=== PATIENT | female | born 1970 | race Native Hawaiian/Other Pacific Islander ===

== ENCOUNTER 2018-03-01 16:12 | Inpatient (IN) | payer OTHER ==
[2018-03-01] MEDS ORDERED: Lidocaine 5% Patch TD STA (16:33)
[2018-03-01] MEDS ORDERED: Lidocaine 5% Patch TD ONE (17:12)
[2018-03-01] MEDS ORDERED: Oxycodone/Acetaminophen 5/325 mg Tab PO STA (18:33)
--- NOTE | 2018-03-01 18:52 | CT ---
PROCEDURE: CT Lumbar Spine without contrast HISTORY: R sided lower back pain radiating to R leg COMPARISON: None. TECHNIQUE: Axial computed tomography images were obtained of the lumbar spine without the use of intravenous contrast. Coronal and sagittal reformatted images were created and reviewed. Radiation dose: Total exam DLP = 917.26 mGy-cm. This CT exam was performed using one or more of the following dose reduction techniques: Automated exposure control, adjustment of the mA and/or kV according to patient size, and/or use of iterative reconstruction technique. FINDINGS: VERTEBRAE: The at current study reveals no acute compression fractures no retropulsed fragments. Vertebral bodies exhibit normal stature. There is straightening of the normal lumbar lordosis with very minimal posterior is subluxation L5 over S1 however vertebral bodies otherwise exhibit normal alignment. Facets normally aligned. DISCS/SPINAL CANAL/NEURAL FORAMINA: L1-2: Mild posterior disc space narrowing. . No disc herniation or significant disc bulge. L2-3: Minor posterior disc space narrowing. No disc herniation or significant disc bulge. Central canal and exit foramina adequate. . L3-4: . Mild asymmetric disc bulging is present bilaterally which results in mild flattening of the anterolateral borders of the thecal sac more so on the left side than the right. Disc bulging extends into the proximal inferior margins of both exit foramina. The central canal measured at midline is adequate. Facets are hypertrophic. Proximal exit foramina appear marginal to adequate. L4-5: Minor anterior disc space narrowing. Asymmetric disc bulge larger on the left than right with mild compressive effects on the ventral surface of thecal sac more so on the left side. Lateral recess narrowed bilaterally left greater than right. Central canal measured at midline appears adequate. There is mild left-sided facet arthropathy more so than right. . Proximal exit foramina are marginal to minimally narrowed. L5-S1: Minor disc space narrowing. There is broad-based though asymmetric disc bulge at the L5-S1 level which extends into the proximal inferior margins of both exit foramina more so on the right side. . . . There is mild compressive effects on the ventral surface of the thecal sac and descending S1 nerve roots more so on the right side with bilateral lateral recess stenosis. Central canal is also mildly narrowed. PARASPINAL SOFT TISSUES: Unremarkable. OTHER FINDINGS: None. IMPRESSION: No acute fractures. Mild degenerative spondylosis with asymmetric disc bulging changes noted at the L5-S1, L4-L5 at the L3-L4 levels as described.
--- NOTE | 2018-03-01 19:47 | ED PDOC ---
HPI: Back Time Seen by Provider: 03/01/18 16:24 Chief Complaint (Nursing): Back Pain Chief Complaint (Provider): Back Pain History Per: Patient History/Exam Limitations: no limitations Onset/Duration Of Symptoms: Intermittent Episodes, Worse Since Current Symptoms Are (Timing): Still Present Quality Of Discomfort: "Pain" Additional Complaint(s): 47 year old female presents to the ED for an evaluation of intermittent back pain onset for 6 months. Patient was treated with Diclofenac which provided relief. As she was getting off the bus today, the pain became worse. Denies trauma, fever, incontinence, nausea, vomiting, or hematuria. PMD: No Family Provided Past Medical History Reviewed: Historical Data, Nursing Documentation, Vital Signs Vital Signs: Last Vital Signs Temp 97.7 F 03/01/18 17:00 Pulse 57 L 03/01/18 17:00 Resp 18 03/01/18 17:00 BP 149/91 H 03/01/18 17:00 Pulse Ox 98 03/01/18 17:00 - Medical History PMH: No Chronic Diseases - Surgical History Surgical History: No Surg Hx - Family History Family History: States: Unknown Family Hx - Allergies Allergies/Adverse Reactions: Allergies Allergy/AdvReac Type Severity Reaction Status Date / Time No Known Allergies Allergy Verified 03/01/18 16:19 Review of Systems ROS Statement: Except As Marked, All Systems Reviewed And Found Negative Constitutional: Negative for: Fever, Other (trauma) Gastrointestinal: Negative for: Nausea, Vomiting Genitourinary Female: Negative for: Incontinence, Hematuria Musculoskeletal: Positive for: Back Pain Physical Exam - Reviewed Nursing Documentation Reviewed: Yes Vital Signs Reviewed: Yes - Physical Exam Appears: Positive for: Non-toxic, In Acute Distress ( moderate ) Head Exam: Positive for: ATRAUMATIC, NORMAL INSPECTION, NORMOCEPHALIC Skin: Positive for: Normal Color, Warm, Dry. Negative for: Rash Eye Exam: Positive for: Normal appearance Cardiovascular/Chest: Positive for: Regular Rate, Rhythm. Negative for: JVD Respiratory: Positive for: Normal Breath Sounds. Negative for: Decreased Breath Sounds, Accessory Muscle Use, Respiratory Distress Gastrointestinal/Abdominal: Positive for: Normal Exam, Bowel Sounds, Soft. Negative for: Tenderness, Guarding, Rebound Back: Positive for: Normal Inspection (straight leg raise, right leg 30 degrees raise), Other (moderate tenderness to the right buttock) Neurologic/Psych: Positive for: Alert, Oriented (x3). Negative for: Aphasia, Facial Droop - Laboratory Results Result Diagrams: 03/01/18 21:36 03/01/18 21:36 - ECG O2 Sat by Pulse Oximetry: 98 (RA) Pulse Ox Interpretation: Normal Medical Decision Making Medical Decision Making: Time: 1632 Initial Impression: back pain Initial Plan: --Lumbar Spine w/o Contrast CT --ED Urine --Lidoderm --Percocet 5/325mg 2 tab --Toradol 30mg --Valium 10mg --Zofran 4mg --Urinalysis --Reevaluation 1829 On re-evaluation, pt. in moderate painful distress. States pain has improved only slight. Percocet 2 tabs PO, zofran 4mg ODT ordered. 1849 CT LS spine w/o contrast: No acute fractures. Mild degenerative spondylosis with asymmetric disc bulging changes noted at the L5-S1, L4-L5 at the L3-L4 levels as described. 2100 On re-evaluation, pt. reports initially percocet provided some pain relief but when she attempted to stand up pain returned is now 10/10. Denies fall, trauma. Labs, morphine 4mg IV ordered. Case d/w Dr. Stack who agrees with plan to keep pt. for observation due to intractable pain. Case d/w Dr. Hall and arrangements made for 23 hour observation. Scribe Attestation: Documented by Belia Soliman, acting as a scribe for Itz Cool PA-C. Provider Scribe Attestation: All medical record entries made by the Scribe were at my direction and personally dictated by me. I have reviewed the chart and agree that the record accurately reflects my personal performance of the history, physical exam, medical decision making, and the department course for this patient. I have also personally directed, reviewed, and agree with the discharge instructions and disposition. Disposition - Clinical Impression Clinical Impression: Intractable low back pain - Patient ED Disposition Is Patient to be Admitted: Yes - Disposition Disposition Time: 21:15 Condition: FAIR
[2018-03-01] MEDS ORDERED: Morphine 4 MG/ML VIAL IVP STA (21:11)
[2018-03-01] MEDS ORDERED: Morphine 4 MG/ML VIAL ONE (21:15)
[2018-03-01 21:40] LABS: BASO # 0.1 K/uL (0.0-0.2); BASO % 1.1 % (0.0-2.0); EOS # 0.2 K/uL (0.0-0.7); EOS % 1.9 % (0.0-4.0); HEMOGLOBIN 13.4 g/dL (12.0-16.0); LYMPH # 4.5 K/uL (1.0-4.3); LYMPH % 34.5 % (20.0-40.0); MEAN CELL VOLUME 95.5 fl (81.0-99.0); MEAN CORPUSCULAR HEMOGLOBIN 32.4 pg (27.0-31.0); MEAN CORPUSCULAR HGB CONC 33.9 g/dL (33.0-37.0); MEAN PLATELET VOLUME 8.9 fl (7.2-11.7); MONO # 1.2 K/uL (0.0-0.8); NEUT % 53.5 % (50.0-75.0); RBC 4.14 Mil/uL (3.80-5.20); RED CELL DISTRIBUTION WIDTH 13.6 % (11.5-14.5); WHITE BLOOD COUNT 13.1 K/uL (4.8-10.8)
[2018-03-01 21:50] LABS: GFR AFRICAN-AMERICAN > 60; GFR NON-AFRICAN AMERICAN > 60
[2018-03-01 21:56] LABS: ALB/GLOB RATIO 1.3 (1.0-2.1); ALBUMIN 4.5 g/dL (3.5-5.0); ALT/SGPT 22 U/L (9-52); AST/SGOT 33 U/L (14-36); BLOOD UREA NITROGEN 18 mg/dl (7-17)
[2018-03-01] MEDS ORDERED: Sodium Chloride 0.9% 1,000 ML IV STA (21:57)
[2018-03-02] MEDS ORDERED: Oxycodone/Acetaminophen 5/325 mg Tab PO PRN (00:08)
[2018-03-02 06:42] LABS: HEMOGLOBIN 12.8 g/dL (12.0-16.0); MEAN CELL VOLUME 95.5 fl (81.0-99.0); MEAN CORPUSCULAR HEMOGLOBIN 31.7 pg (27.0-31.0); MEAN CORPUSCULAR HGB CONC 33.2 g/dL (33.0-37.0); RBC 4.04 Mil/uL (3.80-5.20); RED CELL DISTRIBUTION WIDTH 13.4 % (11.5-14.5); WHITE BLOOD COUNT 11.2 K/uL (4.8-10.8)
[2018-03-02 07:11] LABS: PARTIAL THROMBOPLASTIN TIME 26.9 Seconds (25.6-37.1); PROTHROMBIN TIME 10.9 Seconds (9.8-13.1)
[2018-03-02 07:28] LABS: T3 0.893 nmol/L (1.49-2.60)
[2018-03-02 07:40] LABS: ALB/GLOB RATIO 1.2 (1.0-2.1); ALT/SGPT 23 U/L (9-52); AST/SGOT 18 U/L (14-36); BLOOD UREA NITROGEN 15 mg/dl (7-17); CALCIUM 8.6 mg/dL (8.4-10.2); GFR AFRICAN-AMERICAN > 60; GFR NON-AFRICAN AMERICAN > 60; HDL CHOLESTEROL 56 MG/DL (30-70)
[2018-03-02 07:46] LABS: LDL CHOLESTEROL 140 mg/dL (0-129)
--- NOTE | 2018-03-02 11:23 | CP.PCM.HP ---
History of Present Illness - History of Present Illness History of Present Illness: CC Intractable back pain. 47 y/o F, no chronic PMHx, came to [facility] on 03/01/18 to be evaluated and Tx for intractable low back pain that began 6 months ago increased on DOA after she get out from the bus and start waking, pain was described as sharp, ache, intermittent, severe intensity 9:10, radiated to R side of buttock down to thigh to big toe, no associated symptoms, Pt with no relief. Worsening symptoms: Found with L5 nerve root compression due to moderate foraminal stenosis from disc herniation on MRI, also abnormal U/A. Aggravated factor: Movements/exercise. Pt denied: Fever, chills, n/v/d, CP, SOB, dizziness, syncope, trauma, urinary symptoms, sick contact, recent travel out of [facility]. Present on Admission - Present on Admission Any Indicators Present on Admission: No Review of Systems - Constitutional Constitutional: Other (negative) - EENT Eyes: Other (negative) Ears: Other (negative) Nose/Mouth/Throat: Other (negative) - Cardiovascular Cardiovascular: Other (negative) - Respiratory Respiratory: Other (negative) - Gastrointestinal Gastrointestinal: Other (negative) - Genitourinary Genitourinary: Other (negative) - Musculoskeletal Musculoskeletal: Back Pain, Radiating Pain into Limb - Integumentary Integumentary: Other (negative) - Neurological Neurological: Radicular Pain - Psychiatric Psychiatric: Other (negative) - Endocrine Endocrine: Other (negative) - Hematologic/Lymphatic Hematologic: Other (negative) Past Patient History - Past Medical History & Family History Pertinent Family History: Unknown - Past Social History Smoking Status: Former Smoker Alcohol: None Drugs: Denies Home Situation {Lives}: Alone - CARDIAC Hx Cardiac Disorders: No - PULMONARY Hx Respiratory Disorders: No - NEUROLOGICAL Hx Neurological Disorder: No - HEENT Hx HEENT Problems: No - RENAL Hx Chronic Kidney Disease: No - ENDOCRINE/METABOLIC Hx Endocrine Disorders: No - HEMATOLOGICAL/ONCOLOGICAL Hx Blood Disorders: No - INTEGUMENTARY Hx Dermatological Problems: No - MUSCULOSKELETAL/RHEUMATOLOGICAL Hx Musculoskeletal Disorders: Yes Hx Back Pain: Yes Hx Falls: No - GASTROINTESTINAL Hx Gastrointestinal Disorders: No - GENITOURINARY/GYNECOLOGICAL Hx Genitourinary Disorders: No - PSYCHIATRIC Hx Psychophysiologic Disorder: No Hx Substance Use: No - SURGICAL HISTORY Hx Surgeries: No - ANESTHESIA Hx Anesthesia: No Meds Allergies/Adverse Reactions: Allergies Allergy/AdvReac Type Severity Reaction Status Date / Time No Known Allergies Allergy Verified 03/01/18 16:19 Physical Exam - Constitutional Appears: No Acute Distress - Head Exam Head Exam: NORMAL INSPECTION - Eye Exam Eye Exam: PERRL - ENT Exam ENT Exam: Normal Exam - Neck Exam Neck exam: Positive for: Normal Inspection - Respiratory Exam Respiratory Exam: Clear to Auscultation Bilateral - Cardiovascular Exam Cardiovascular Exam: REGULAR RHYTHM - Extremities Exam Extremities exam: Positive for: normal inspection Additional comments: Straight R leg raising at 45 degree. - Back Exam Back exam: NORMAL INSPECTION, tenderness (Moderate to R buttock) - Neurological Exam Neurological exam: Alert, Oriented x3 - Psychiatric Exam Psychiatric exam: Normal Mood - Skin Skin Exam: Warm Results - Vital Signs Recent Vital Signs: Last Vital Signs Temp 98.1 F 03/02/18 09:00 Pulse 58 L 03/02/18 09:00 Resp 19 03/02/18 09:00 BP 143/87 03/02/18 09:00 Pulse Ox 98 03/02/18 09:00 kevin Gutierrez - Labs Result Diagrams: 03/03/18 05:21 03/03/18 05:21 Labs: Laboratory Results - last 24 hr 03/01/18 03/01/18 03/02/18 21:36 21:36 05:35 WBC 13.1 H 11.2 H RBC 4.14 4.04 Hgb 13.4 12.8 Hct 39.6 38.6 MCV 95.5 95.5 MCH 32.4 H 31.7 H MCHC 33.9 33.2 RDW 13.6 13.4 Plt Count 312 282 MPV 8.9 Neut % (Auto) 53.5 Lymph % (Auto) 34.5 [place] % (Auto) 9.0 Eos % (Auto) 1.9 Baso % (Auto) 1.1 Neut # (Auto) 7.0 Lymph # (Auto) 4.5 H [place] # (Auto) 1.2 H Eos # (Auto) 0.2 Baso # (Auto) 0.1 PT INR APTT Sodium 136 Potassium 4.7 Chloride 104 Carbon Dioxide 19 L Anion Gap 18 BUN 18 H Creatinine 0.6 L Est GFR ( Amer) > 60 Est GFR (Non-Af Amer) > 60 Random Glucose 99 Calcium 9.0 Total Bilirubin 1.1 AST 33 ALT 22 Alkaline Phosphatase 37 L Total Protein 8.0 Albumin 4.5 Globulin 3.5 Albumin/Globulin Ratio 1.3 Triglycerides Cholesterol LDL Cholesterol Direct HDL Cholesterol Total T3 TSH 3rd Generation 03/02/18 03/02/18 05:35 05:35 WBC RBC Hgb Hct MCV MCH MCHC RDW Plt Count MPV Neut % (Auto) Lymph % (Auto) [place] % (Auto) Eos % (Auto) Baso % (Auto) Neut # (Auto) Lymph # (Auto) [place] # (Auto) Eos # (Auto) Baso # (Auto) PT 10.9 INR 1.0 APTT 26.9 Sodium 136 Potassium 4.3 Chloride 105 Carbon Dioxide 21 L Anion Gap 14 BUN 15 Creatinine 0.6 L Est GFR ( Amer) > 60 Est GFR (Non-Af Amer) > 60 Random Glucose 105 Calcium 8.6 Total Bilirubin 0.7 AST 18 ALT 23 Alkaline Phosphatase 36 L Total Protein 7.3 Albumin 4.0 Globulin 3.3 Albumin/Globulin Ratio 1.2 Triglycerides 63 Cholesterol 229 H LDL Cholesterol Direct 140 H HDL Cholesterol 56 Total T3 0.893 L TSH 3rd Generation 0.85 reviewed J.P. - Impressions Impression: Lumbar Spine MRI and CT reviewed J.P. Assessment & Plan (1) Intractable low back pain Status: Acute Priority: High (2) Radiculopathy, lumbar region Status: Acute Priority: High - Assessment and Plan (Free Text) Plan: Continue Flexeril, Morphine, Motrin and rest of Tx, PT, OT, Neurology consult, Pain management consult. - Date & Time Date: 03/02/18 Time: 10:20
--- NOTE | 2018-03-02 11:57 | CP.PCM.CON ---
History of Present Illness - History of Present Illness History of Present Illness: Patient complaining of low back pain starting on the right buttock radiating down from back of thigh to her big toe anteriorly. She had similar expeerience since last year but of mild episodes and of lesser duration. Usually relieved by rest and some NSAID given by her primary physician. This time, pain progressively worsened overnight prior to admission. It started after getting off bus and aggravated by walking. Denies any trauma nor lifting heavy objects. Denies any urine nor bowel incontinence. Positive straight leg raising on right side at 45 degrees. Motor: LLE = 5/5; RLE = 4/5 due to low back pain. Intact sensory on both lower extremity. No elicit tenderness of her back nor buttocks. Past Patient History - Past Social History Smoking Status: Former Smoker - CARDIAC Hx Cardiac Disorders: No - MUSCULOSKELETAL/RHEUMATOLOGICAL Hx Falls: No - PSYCHIATRIC Hx Substance Use: No - SURGICAL HISTORY Hx Surgeries: No - ANESTHESIA Hx Anesthesia: No Meds Allergies/Adverse Reactions: Allergies Allergy/AdvReac Type Severity Reaction Status Date / Time No Known Allergies Allergy Verified 03/01/18 16:19 - Medications Medications: Current Medications Cyclobenzaprine HCl (Flexeril) 5 mg PO TID PRN PRN Reason: Muscle spasm Morphine Sulfate (Morphine) 4 mg IVP Q4 PRN PRN Reason: Pain, severe (8-10) Last Admin: 03/02/18 08:15 Dose: 4 mg Ondansetron HCl (Zofran Inj) 4 mg IVP Q4 PRN PRN Reason: Nausea/Vomiting Oxycodone/Acetaminophen (Percocet 5/325 Mg Tab) 1 tab PO Q4 PRN PRN Reason: Pain, moderate (4-7) Stop: 03/05/18 00:09 Results - Vital Signs Recent Vital Signs: Last Vital Signs Temp 98.1 F 03/02/18 09:00 Pulse 58 L 03/02/18 09:00 Resp 19 03/02/18 09:00 BP 143/87 03/02/18 09:00 Pulse Ox 98 03/02/18 09:00 - Labs Result Diagrams: 03/02/18 05:35 03/02/18 05:35 Labs: Laboratory Results - last 24 hr 03/01/18 03/01/18 03/02/18 21:36 21:36 05:35 WBC 13.1 H 11.2 H RBC 4.14 4.04 Hgb 13.4 12.8 Hct 39.6 38.6 MCV 95.5 95.5 MCH 32.4 H 31.7 H MCHC 33.9 33.2 RDW 13.6 13.4 Plt Count 312 282 MPV 8.9 Neut % (Auto) 53.5 Lymph % (Auto) 34.5 [place] % (Auto) 9.0 Eos % (Auto) 1.9 Baso % (Auto) 1.1 Neut # (Auto) 7.0 Lymph # (Auto) 4.5 H [place] # (Auto) 1.2 H Eos # (Auto) 0.2 Baso # (Auto) 0.1 PT INR APTT Sodium 136 Potassium 4.7 Chloride 104 Carbon Dioxide 19 L Anion Gap 18 BUN 18 H Creatinine 0.6 L Est GFR ( Amer) > 60 Est GFR (Non-Af Amer) > 60 Random Glucose 99 Calcium 9.0 Total Bilirubin 1.1 AST 33 ALT 22 Alkaline Phosphatase 37 L Total Protein 8.0 Albumin 4.5 Globulin 3.5 Albumin/Globulin Ratio 1.3 Triglycerides Cholesterol LDL Cholesterol Direct HDL Cholesterol Total T3 TSH 3rd Generation 03/02/18 03/02/18 05:35 05:35 WBC RBC Hgb Hct MCV MCH MCHC RDW Plt Count MPV Neut % (Auto) Lymph % (Auto) [place] % (Auto) Eos % (Auto) Baso % (Auto) Neut # (Auto) Lymph # (Auto) [place] # (Auto) Eos # (Auto) Baso # (Auto) PT 10.9 INR 1.0 APTT 26.9 Sodium 136 Potassium 4.3 Chloride 105 Carbon Dioxide 21 L Anion Gap 14 BUN 15 Creatinine 0.6 L Est GFR ( Amer) > 60 Est GFR (Non-Af Amer) > 60 Random Glucose 105 Calcium 8.6 Total Bilirubin 0.7 AST 18 ALT 23 Alkaline Phosphatase 36 L Total Protein 7.3 Albumin 4.0 Globulin 3.3 Albumin/Globulin Ratio 1.2 Triglycerides 63 Cholesterol 229 H LDL Cholesterol Direct 140 H HDL Cholesterol 56 Total T3 0.893 L TSH 3rd Generation 0.85 Assessment & Plan - Assessment and Plan (Free Text) Assessment: Lumbar radiculopathy due to sciatica. Plan: Discussed with Dr. Bermudez Recommend: Neurontin 300mg po Q8H Flexeril 10mg po Q8H Ibuprofen 800mg po Q8H Continue Morphine for now. Patient needs PT evaluation. Right Transforaminal epidural steroid injection if patient wants. (she is not decided). Please notify Dr. Bermudez if she decides to have it, so we can schedule her tomorrow. Patient to be followed by Dr. Bermudez.
--- NOTE | 2018-03-02 13:39 | CP.PCM.CON ---
History of Present Illness - History of Present Illness History of Present Illness: Neurology Consultation Note: Mrs. Dooley is a 47-year-old woman with a previous history of chronic back pain. She is on gabapentin, percocet, flexeril and now morphine. CT of the lumbar spine did show multiple disc herniations. Strength is normal. The pain involves the lower back and radiates down to the back of her thigh to the big toe on the right. The pain is seems to have gotten acutely worse as she got off of the bus yesterday. Review of Systems - Review of Systems All systems: reviewed and no additional remarkable complaints except Past Patient History - Past Social History Smoking Status: Former Smoker - CARDIAC Hx Cardiac Disorders: No - MUSCULOSKELETAL/RHEUMATOLOGICAL Hx Falls: No - PSYCHIATRIC Hx Substance Use: No - SURGICAL HISTORY Hx Surgeries: No - ANESTHESIA Hx Anesthesia: No Meds Allergies/Adverse Reactions: Allergies Allergy/AdvReac Type Severity Reaction Status Date / Time No Known Allergies Allergy Verified 03/01/18 16:19 - Medications Medications: Current Medications Cyclobenzaprine HCl (Flexeril) 10 mg PO TID ALYSON Gabapentin (Neurontin) 300 mg PO TID ALYSON Ibuprofen (Motrin Tab) 800 mg PO Q8 ALYSON Morphine Sulfate (Morphine) 4 mg IVP Q4 PRN PRN Reason: Pain, severe (8-10) Last Admin: 03/02/18 08:15 Dose: 4 mg Ondansetron HCl (Zofran Inj) 4 mg IVP Q4 PRN PRN Reason: Nausea/Vomiting Oxycodone/Acetaminophen (Percocet 5/325 Mg Tab) 1 tab PO Q4 PRN PRN Reason: Pain, moderate (4-7) Stop: 03/05/18 00:09 Pantoprazole Sodium (Protonix Ec Tab) 40 mg PO DAILY [facility] Physical Exam - Neurological Exam Neurological exam: Alert, CN II-XII Intact, Normal Gait, Oriented x3, Reflexes Normal Results - Vital Signs Recent Vital Signs: Last Vital Signs Temp 98.1 F 03/02/18 09:00 Pulse 58 L 03/02/18 09:00 Resp 19 03/02/18 09:00 BP 143/87 03/02/18 09:00 Pulse Ox 98 03/02/18 09:00 - Labs Result Diagrams: 03/02/18 05:35 03/02/18 05:35 Labs: Laboratory Results - last 24 hr 03/01/18 03/01/18 03/02/18 21:36 21:36 05:35 WBC 13.1 H 11.2 H RBC 4.14 4.04 Hgb 13.4 12.8 Hct 39.6 38.6 MCV 95.5 95.5 MCH 32.4 H 31.7 H MCHC 33.9 33.2 RDW 13.6 13.4 Plt Count 312 282 MPV 8.9 Neut % (Auto) 53.5 Lymph % (Auto) 34.5 [place] % (Auto) 9.0 Eos % (Auto) 1.9 Baso % (Auto) 1.1 Neut # (Auto) 7.0 Lymph # (Auto) 4.5 H [place] # (Auto) 1.2 H Eos # (Auto) 0.2 Baso # (Auto) 0.1 PT INR APTT Sodium 136 Potassium 4.7 Chloride 104 Carbon Dioxide 19 L Anion Gap 18 BUN 18 H Creatinine 0.6 L Est GFR ( Amer) > 60 Est GFR (Non-Af Amer) > 60 Random Glucose 99 Calcium 9.0 Total Bilirubin 1.1 AST 33 ALT 22 Alkaline Phosphatase 37 L Total Protein 8.0 Albumin 4.5 Globulin 3.5 Albumin/Globulin Ratio 1.3 Triglycerides Cholesterol LDL Cholesterol Direct HDL Cholesterol Total T3 TSH 3rd Generation 03/02/18 03/02/18 05:35 05:35 WBC RBC Hgb Hct MCV MCH MCHC RDW Plt Count MPV Neut % (Auto) Lymph % (Auto) [place] % (Auto) Eos % (Auto) Baso % (Auto) Neut # (Auto) Lymph # (Auto) [place] # (Auto) Eos # (Auto) Baso # (Auto) PT 10.9 INR 1.0 APTT 26.9 Sodium 136 Potassium 4.3 Chloride 105 Carbon Dioxide 21 L Anion Gap 14 BUN 15 Creatinine 0.6 L Est GFR ( Amer) > 60 Est GFR (Non-Af Amer) > 60 Random Glucose 105 Calcium 8.6 Total Bilirubin 0.7 AST 18 ALT 23 Alkaline Phosphatase 36 L Total Protein 7.3 Albumin 4.0 Globulin 3.3 Albumin/Globulin Ratio 1.2 Triglycerides 63 Cholesterol 229 H LDL Cholesterol Direct 140 H HDL Cholesterol 56 Total T3 0.893 L TSH 3rd Generation 0.85 Assessment & Plan (1) Intractable low back pain Assessment and Plan: I recommend MRI of the lumbar spine for further evaluation. IF there is significant disease, neurosurgery should be consulted. Please defer to pain management for the acute on chronic back pain. We can increase neurontin to 600 mg TID. Thank you. Status: Acute Priority: High
[2018-03-02] MEDS: Pantoprazole 40 mg EC Tab PO SCH (14:56)
--- NOTE | 2018-03-02 16:38 | MRI ---
PROCEDURE: MR LUMBAR SPINE WITHOUT CONTRAST HISTORY: back pain COMPARISON: Lumbar spine CT without contrast 03/01/2018. TECHNIQUE: Multiecho multiplanar sequences were performed through the lumbar spine without the use of intravenous contrast. FINDINGS: Straightened lumbar curvature reiterated. No suspicious matter signal changes. No fracture or spondylolisthesis. Inferior multilevel disc desiccation identified. Vertebral body heights are preserved. Conus medullaris unremarkable at the level of L1 Prevertebral and paraspinal soft tissues are unremarkable. Motion artifacts limit transaxial imaging. T12-L1: No disc herniation, spinal canal stenosis or neural foraminal narrowing. L1-2: No disc herniation, spinal canal stenosis or neural foraminal narrowing. L2-3: No disc herniation, spinal canal stenosis or neural foraminal narrowing. L3-4: No disc herniation. Moderate facet joint degenerative changes are identified symmetrically without stenosis resulting either at the central canal or neural foramina bilaterally. L4-5: Moderate facet joint degenerative arthropathy encroaches the left greater than right lateral recess without generalized central canal or neural foraminal stenosis bilaterally. No disc herniation identified. Minimal posterior disc bulge identified. L5-S1: Minimal posterior disc bulge right foraminal disc herniation causing moderate right neural foraminal stenosis and encroaching the right lateral recess somewhat. Under canal on nevertheless is adequately patent without generalized central stenosis. Left neural foramen widely patent. OTHER FINDINGS: None. IMPRESSION: Right L5 root foraminal disc herniation this small but results in a moderate right neural foraminal stenosis. Limited encroaching the right lateral recess also noted. Multilevel facet degenerative changes are identified encroaching the bilateral lateral recesses at L4-5, left greater than right with lesser but similar changes at L3-4. Straightened curvature reiterated.
[2018-03-02] MEDS ORDERED: Dexamethasone 10 MG in Sodium Chloride 0.9% 50 ML IVPB SCH (19:30)
[2018-03-03 06:09] LABS: MEAN CELL VOLUME 95.8 fl (81.0-99.0); MEAN CORPUSCULAR HEMOGLOBIN 31.9 pg (27.0-31.0); MEAN CORPUSCULAR HGB CONC 33.3 g/dL (33.0-37.0); RBC 4.06 Mil/uL (3.80-5.20); RED CELL DISTRIBUTION WIDTH 13.5 % (11.5-14.5); WHITE BLOOD COUNT 8.1 K/uL (4.8-10.8)
[2018-03-03 06:48] LABS: BLOOD UREA NITROGEN 13 mg/dl (7-17); CALCIUM 9.1 mg/dL (8.4-10.2); GFR AFRICAN-AMERICAN > 60; GFR NON-AFRICAN AMERICAN > 60
[2018-03-03 06:58] LABS: SQUAMOUS EPITHIAL 40 /hpf (0-5); URINE BACTERIA OCC (<OCC); URINE BILIRUBIN NEGATIVE (NEGATIVE); URINE BLOOD NEGATIVE (NEGATIVE); URINE CLARITY CLOUDY (Clear); URINE COLOR YELLOW (YELLOW); URINE GLUCOSE (UA) NEG (Normal); URINE LEUKOCYTE ESTERASE MOD Leu/uL (Negative); URINE PROTEIN 30 mg/dL (NEGATIVE); URINE UROBILINOGEN 0.2-1.0 mg/dL (0.2-1.0)
[2018-03-03] MEDS ORDERED: Iohexol 300 10 ML ONE (08:47)
[2018-03-03] MEDS ORDERED: methylPREDNISolone Depo 80 mg/ml Inj ONE (08:47)
[2018-03-03] MEDS ORDERED: MethylPREDNISolone Depo 40 mg/ml Inj ONE (08:47)
[2018-03-03] MEDS ORDERED: Lactated Ringer's 1,000 ML IV ONE (08:50)
[2018-03-03] MEDS ORDERED: Propofol 10 mg/ml Inj (20 ML) ONE (08:52)
[2018-03-03] MEDS ORDERED: Lidocaine 1% Inj (20ml) IJ ONE (08:55)
[2018-03-03] MEDS ORDERED: Bupivacaine 0.25% Inj(30mL) IJ ONE (08:58)
[2018-03-03] MEDS ORDERED: Lactated Ringer's 500 ML IV ONE (09:03)
[2018-03-03] MEDS ORDERED: HYDROmorphone 0.5 mg/0.5 ml ISec IVP PRN (09:08)
--- NOTE | 2018-03-03 09:24 | CP.PCM.PN ---
Subjective - Date & Time of Evaluation Date of Evaluation: 03/03/18 Time of Evaluation: 09:15 - Subjective Subjective: Patient is s/p right L4-5, L5-S1 transforaminal epidural steroid injections for lumbar radiculopathy. She elected to have an epidural after R/B/A were explained to her. She's resting comfortably in the PACU. Objective - Vital Signs/Intake and Output Vital Signs (last 24 hours): Temp Pulse Resp BP Pulse Ox 99.2 F 75 19 143/91 H 100 03/03/18 09:03 03/03/18 09:03 03/03/18 09:03 03/03/18 09:03 03/03/18 09:03 - Medications Medications: Current Medications Cyclobenzaprine HCl (Flexeril) 10 mg PO TID [facility] Last Admin: 03/02/18 17:09 Dose: Not Given Dexamethasone (Decadron Inj) 10 mg IVP Q8H [facility] Stop: 03/04/18 12:46 Last Admin: 03/03/18 03:47 Dose: 10 mg Gabapentin (Neurontin) 600 mg PO TID [facility] Hydromorphone HCl (Dilaudid) 0.5 mg IVP Q5M PRN PRN Reason: Pain, moderate (4-7) Stop: 03/03/18 11:08 Lactated Ringer's (Lactated Ringer's) 1,000 mls @ 100 mls/hr IV .Q10H [facility] Ibuprofen (Motrin Tab) 800 mg PO Q8 [facility] Last Admin: 03/03/18 01:11 Dose: 800 mg Morphine Sulfate (Morphine) 4 mg IVP Q4 PRN PRN Reason: Pain, severe (8-10) Last Admin: 03/03/18 02:51 Dose: 4 mg Ondansetron HCl (Zofran Inj) 4 mg IVP Q4 PRN PRN Reason: Nausea/Vomiting Ondansetron HCl (Zofran Inj) 4 mg IVP ONCE PRN PRN Reason: Nausea/Vomiting Stop: 03/03/18 11:08 Oxycodone/Acetaminophen (Percocet 5/325 Mg Tab) 1 tab PO Q4 PRN PRN Reason: Pain, moderate (4-7) Stop: 03/05/18 00:09 Last Admin: 03/02/18 18:39 Dose: 1 tab Pantoprazole Sodium (Protonix Ec Tab) 40 mg PO DAILY [facility] Last Admin: 03/02/18 14:56 Dose: 40 mg - Labs Labs: 03/03/18 05:21 03/03/18 05:21 PT 10.9 Seconds (9.8-13.1) 03/02/18 05:35 INR 1.0 (0.9-1.2) 03/02/18 05:35 APTT 26.9 Seconds (25.6-37.1) 03/02/18 05:35 Assessment and Plan (1) Intractable low back pain Assessment & Plan: 47 yo woman w/ lumbar radiculopathy is s/p epidural. - she may go home if she responds well to epidural - continue NEurontin, Flexeril, NSAIDS, can discharge with Percocet - PT eval for dispo Status: Acute
[2018-03-03] MEDS: Pantoprazole 40 mg EC Tab PO SCH (10:01)
[2018-03-03] MEDS: Lactated Ringer's 1,000 ML IV SCH ×2 (13:22→19:15)
--- NOTE | 2018-03-03 13:39 | CP.PCM.PN ---
Subjective - Date & Time of Evaluation Date of Evaluation: 03/03/18 Time of Evaluation: 13:00 - Subjective Subjective: had Epidural block , less R gluteal pain Objective - Vital Signs/Intake and Output Vital Signs (last 24 hours): Temp Pulse Resp BP Pulse Ox 97.6 F 76 18 134/84 98 03/03/18 13:00 03/03/18 13:00 03/03/18 13:00 03/03/18 13:00 03/03/18 13:00 Intake and Output: 03/03/18 03/03/18 06:59 18:59 Intake Total 200 Balance 200 - Medications Medications: Current Medications Cyclobenzaprine HCl (Flexeril) 10 mg PO TID [facility] Last Admin: 03/03/18 13:22 Dose: 10 mg Dexamethasone (Decadron Inj) 10 mg IVP Q8H [facility] Stop: 03/04/18 12:46 Last Admin: 03/03/18 13:20 Dose: Not Given Gabapentin (Neurontin) 600 mg PO TID [facility] Last Admin: 03/03/18 13:22 Dose: 600 mg Lactated Ringer's (Lactated Ringer's) 1,000 mls @ 100 mls/hr IV .Q10H [facility] Last Admin: 03/03/18 13:22 Dose: Not Given Ibuprofen (Motrin Tab) 800 mg PO Q8 [facility] Last Admin: 03/03/18 10:01 Dose: Not Given Morphine Sulfate (Morphine) 4 mg IVP Q4 PRN PRN Reason: Pain, severe (8-10) Last Admin: 03/03/18 02:51 Dose: 4 mg Ondansetron HCl (Zofran Inj) 4 mg IVP Q4 PRN PRN Reason: Nausea/Vomiting Oxycodone/Acetaminophen (Percocet 5/325 Mg Tab) 1 tab PO Q4 PRN PRN Reason: Pain, moderate (4-7) Stop: 03/05/18 00:09 Last Admin: 03/02/18 18:39 Dose: 1 tab Pantoprazole Sodium (Protonix Ec Tab) 40 mg PO DAILY [facility] Last Admin: 03/03/18 10:01 Dose: 40 mg - Labs Labs: 03/03/18 05:21 03/03/18 05:21 PT 10.9 Seconds (9.8-13.1) 03/02/18 05:35 INR 1.0 (0.9-1.2) 03/02/18 05:35 APTT 26.9 Seconds (25.6-37.1) 03/02/18 05:35 - Constitutional Appears: No Acute Distress - Head Exam Head Exam: NORMAL INSPECTION - Eye Exam Eye Exam: PERRL - ENT Exam ENT Exam: Normal Exam - Neck Exam Neck Exam: Normal Inspection - Respiratory Exam Respiratory Exam: Clear to Ausculation Bilateral - Cardiovascular Exam Cardiovascular Exam: REGULAR RHYTHM - GI/Abdominal Exam GI & Abdominal Exam: Normal Bowel Sounds - Extremities Exam Extremities Exam: Normal Inspection - Back Exam Back Exam: tenderness (minimal R gluteal) - Neurological Exam Neurological Exam: Alert, CN II-XII Intact, Oriented x3 Additional comments: no focal motor deficit - Psychiatric Exam Psychiatric exam: Anxious - Skin Skin Exam: Warm Assessment and Plan (1) Right low back pain Status: Acute (2) Radiculopathy, lumbar region Status: Acute - Assessment and Plan (Free Text) Plan: continue Flexeril , Morphine , Motrin, Neurontin , f/u Cervical , Thoracic , Lumbar Spine MRI, Neurosurgeon f/u
[2018-03-03] MEDS ORDERED: Dexamethasone 10 MG in Sodium Chloride 0.9% 50 ML IVPB SCH (17:00)
--- NOTE | 2018-03-03 19:59 | OP ---
PROCEDURE DATE: 03/03/2018 PREOPERATIVE DIAGNOSIS: Lumbar radiculopathy. POSTOPERATIVE DIAGNOSIS: Lumbar radiculopathy. PROCEDURE: Right L4-5 and L5-S1 transforaminal epidural steroid injection. ANESTHESIOLOGIST: Tommy Martins MD SURGEON: Leighton Bermudez MD TYPE OF ANESTHESIA: Monitored anesthesia care. COMPLICATIONS: None. SPECIMENS: None. DESCRIPTION OF PROCEDURE: As follows. After we had discussion of the procedure with the patient including its risks, benefits, alternatives, outcome data and possibility of no effect or increased pain, the patient consented to the procedure. She denies any recent infection, bleeding, tendencies, or being on anticoagulants, decision was then made to proceed to the OR. The patient was placed on the fluoroscopy table in a prone position with two pillows underneath her abdomen. The back was prepped and draped in a usual sterile fashion and a sterile technique was adhered to during the entire procedure. The L4 and L5 vertebral levels were first identified in the anteroposterior view. Angulation towards the right at approximately 20 degrees was used to maximize the visualization of the right L4 and L5 pedicles. The skin overlying the 6 o'clock position of both pedicles were then infiltrated with 1% lidocaine using 25-gauge needle. Subsequently, a 22-gauge 3.5 inch spinal needle was then incrementally advanced under fluoroscopic guidance until the tip of needle walked into the intervertebral foramen. The spinal needle position was confirmed on the anterior posterior view and on lateral views. After satisfactory positioning of both needles, approximately 0.5 mL of Isovue contrast was injected showing appropriate epidural nerve root spread without any signs of CSF or intravenous involvement. At this point, approximately 3 mL of 0.25% Marcaine and Depo-Medrol mixture was injected. The needle was then removed and the patient's back was cleaned and dry bandages were applied. The patient was then transferred to the recovery area in good condition without any signs of [employer] toxicity or any neurological deficit. She will be following up in the office in approximately two to four weeks. Leighton Bermudez MD
[2018-03-04] MEDS: Lactated Ringer's 1,000 ML IV SCH (04:48)
[2018-03-04] MEDS: Pantoprazole 40 mg EC Tab PO SCH (08:18)
--- NOTE | 2018-03-04 12:11 | CP.PCM.PN ---
Subjective - Date & Time of Evaluation Date of Evaluation: 03/04/18 Time of Evaluation: 12:00 - Subjective Subjective: Attempted to see patient, but she is off the floor receiving MRI. Per staff, she was transiently pain-free after the epidural but then developed "nerve pinching" when out of bed in the evening yesterday. Objective - Vital Signs/Intake and Output Vital Signs (last 24 hours): Temp Pulse Resp BP Pulse Ox 97.9 F 60 18 152/92 H 99 03/04/18 08:27 03/04/18 08:27 03/04/18 08:27 03/04/18 08:27 03/04/18 08:27 - Medications Medications: Current Medications Cyclobenzaprine HCl (Flexeril) 10 mg PO TID [facility] Last Admin: 03/04/18 08:17 Dose: 10 mg Gabapentin (Neurontin) 600 mg PO TID [facility] Last Admin: 03/04/18 08:17 Dose: 600 mg Lactated Ringer's (Lactated Ringer's) 1,000 mls @ 100 mls/hr IV .Q10H [facility] Last Admin: 03/04/18 04:48 Dose: Not Given Ibuprofen (Motrin Tab) 800 mg PO Q8 [facility] Last Admin: 03/04/18 08:17 Dose: 800 mg Morphine Sulfate (Morphine) 4 mg IVP Q4 PRN PRN Reason: Pain, severe (8-10) Last Admin: 03/03/18 02:51 Dose: 4 mg Ondansetron HCl (Zofran Inj) 4 mg IVP Q4 PRN PRN Reason: Nausea/Vomiting Oxycodone/Acetaminophen (Percocet 5/325 Mg Tab) 1 tab PO Q4 PRN PRN Reason: Pain, moderate (4-7) Stop: 03/05/18 00:09 Last Admin: 03/02/18 18:39 Dose: 1 tab Pantoprazole Sodium (Protonix Ec Tab) 40 mg PO DAILY [facility] Last Admin: 03/04/18 08:18 Dose: 40 mg - Labs Labs: 03/03/18 05:21 03/03/18 05:21 PT 10.9 Seconds (9.8-13.1) 03/02/18 05:35 INR 1.0 (0.9-1.2) 03/02/18 05:35 APTT 26.9 Seconds (25.6-37.1) 03/02/18 05:35 Assessment and Plan (1) Intractable low back pain Assessment & Plan: 47 yo woman w/ lumbar radiculopathy, MRI showing mild foraminal stenosis, is s/ p lumbar epidural. - f/u neurology recommendation - continue current regimen - PT f/u Status: Acute
--- NOTE | 2018-03-04 13:01 | MRI ---
PROCEDURE: MR CERVICAL SPINE WITHOUT CONTRAST HISTORY: LBP, radiculopathy COMPARISON: None available. TECHNIQUE: Multiecho multiplanar sequences were performed through the cervical spine without the use of intravenous contrast. FINDINGS: Normal lordotic curvature. Craniocervical junction unremarkable. Vertebral body heights preserved. No marrow signal abnormality. Normal cervical cord. No paraspinal abnormality. C2-C3: No disc herniation, spinal canal stenosis or neural foraminal narrowing. C3-C4: No disc herniation, spinal canal stenosis or neural foraminal narrowing. C4-C5: No disc herniation, spinal canal stenosis or neural foraminal narrowing. C5-C6: Broad-based disc herniation with impingement upon the ventral margin the cord. C6-C7: Central disc herniation with annular tear. C7-T1: No disc herniation, spinal canal stenosis or neural foraminal narrowing. OTHER FINDINGS: None. IMPRESSION: C5-C6 Broad-based disc herniation with impingement upon the ventral margin the cord. C6-C7 Central disc herniation with annular tear.
--- NOTE | 2018-03-04 13:03 | MRI ---
PROCEDURE: MR THORACIC SPINE WITHOUT CONTRAST HISTORY: radiculopathy COMPARISON: None available. TECHNIQUE: Multiecho multiplanar sequences were performed through the thoracic spine without the use of intravenous contrast. FINDINGS: ALIGNMENT: Normal thoracic spinal alignment. Normal thoracic kyphosis. VERTEBRA: Vertebral body height are preserved. MARROW: Marrow signal unremarkable. PARASPINAL SOFT TISSUES: Unremarkable. CORD: Unremarkable thoracic cord. No volume loss, signal abnormality or syrinx. DISCS: T7/8 disc bulge with encroachment upon the ventral margin the cord. OTHER FINDINGS: None. IMPRESSION: T7/8 disc bulge with encroachment upon the ventral margin the cord.
--- NOTE | 2018-03-04 17:36 | CP.PCM.PN ---
Subjective - Date & Time of Evaluation Date of Evaluation: 04/03/18 Time of Evaluation: 10:40 - Subjective Subjective: R gluteal pain Objective - Vital Signs/Intake and Output Vital Signs (last 24 hours): Temp Pulse Resp BP Pulse Ox 98.1 F 63 20 149/98 H 98 03/04/18 17:00 03/04/18 17:00 03/04/18 17:00 03/04/18 17:00 03/04/18 17:00 - Medications Medications: Current Medications Cyclobenzaprine HCl (Flexeril) 10 mg PO TID [facility] Last Admin: 03/04/18 16:58 Dose: 10 mg Gabapentin (Neurontin) 600 mg PO TID [facility] Last Admin: 03/04/18 16:57 Dose: 600 mg Ibuprofen (Motrin Tab) 800 mg PO Q8 [facility] Last Admin: 03/04/18 16:57 Dose: 800 mg Morphine Sulfate (Morphine) 4 mg IVP Q4 PRN PRN Reason: Pain, severe (8-10) Last Admin: 03/03/18 02:51 Dose: 4 mg Ondansetron HCl (Zofran Inj) 4 mg IVP Q4 PRN PRN Reason: Nausea/Vomiting Oxycodone/Acetaminophen (Percocet 5/325 Mg Tab) 1 tab PO Q4 PRN PRN Reason: Pain, moderate (4-7) Stop: 03/05/18 00:09 Last Admin: 03/02/18 18:39 Dose: 1 tab Pantoprazole Sodium (Protonix Ec Tab) 40 mg PO DAILY [facility] Last Admin: 03/04/18 08:18 Dose: 40 mg - Labs Labs: 03/03/18 05:21 03/03/18 05:21 PT 10.9 Seconds (9.8-13.1) 03/02/18 05:35 INR 1.0 (0.9-1.2) 03/02/18 05:35 APTT 26.9 Seconds (25.6-37.1) 03/02/18 05:35 - Constitutional Appears: No Acute Distress - Head Exam Head Exam: NORMAL INSPECTION - Eye Exam Eye Exam: PERRL - ENT Exam ENT Exam: Normal Exam - Neck Exam Neck Exam: Normal Inspection - Respiratory Exam Respiratory Exam: NORMAL BREATHING PATTERN - Cardiovascular Exam Cardiovascular Exam: REGULAR RHYTHM - GI/Abdominal Exam GI & Abdominal Exam: Soft, Normal Bowel Sounds - Back Exam Back Exam: tenderness (R L-S) - Neurological Exam Neurological Exam: Alert, CN II-XII Intact, Oriented x3 Additional comments: no focal motor deficit - Psychiatric Exam Psychiatric exam: Anxious Assessment and Plan (1) Intractable low back pain Status: Acute (2) Radiculopathy, lumbar region Status: Acute - Assessment and Plan (Free Text) Plan: continue Flexeril , Morphine , Motrin , Neurontin , Patient had MRI Cervical , Thoracic, L-S , f/u report , f/u Neurosurgeon
[2018-03-05] MEDS: Pantoprazole 40 mg EC Tab PO SCH (09:08)
--- NOTE | 2018-03-05 09:12 | CP.PCM.CON ---
History of Present Illness - History of Present Illness History of Present Illness: full consult was dictated 2 days ago unclear why not on chart Agree with plan for conservative tx LESI already done should have out patient PT and NSAIDS will f/u in office If fails to improve with above may require Microdiscectmy D/W Pt Past Patient History - Past Social History Smoking Status: Former Smoker Alcohol: None Drugs: Denies Home Situation {Lives}: Alone - CARDIAC Hx Cardiac Disorders: No - PULMONARY Hx Respiratory Disorders: No - NEUROLOGICAL Hx Neurological Disorder: No - HEENT Hx HEENT Problems: No - RENAL Hx Chronic Kidney Disease: No - ENDOCRINE/METABOLIC Hx Endocrine Disorders: No - HEMATOLOGICAL/ONCOLOGICAL Hx Blood Disorders: No - INTEGUMENTARY Hx Dermatological Problems: No - MUSCULOSKELETAL/RHEUMATOLOGICAL Hx Musculoskeletal Disorders: Yes Hx Back Pain: Yes Hx Falls: No - GASTROINTESTINAL Hx Gastrointestinal Disorders: No - GENITOURINARY/GYNECOLOGICAL Hx Genitourinary Disorders: No - PSYCHIATRIC Hx Psychophysiologic Disorder: No Hx Substance Use: No - SURGICAL HISTORY Hx Surgeries: No - ANESTHESIA Hx Anesthesia: No Meds Allergies/Adverse Reactions: Allergies Allergy/AdvReac Type Severity Reaction Status Date / Time No Known Allergies Allergy Verified 03/01/18 16:19 - Medications Medications: Current Medications Cyclobenzaprine HCl (Flexeril) 10 mg PO TID [facility] Last Admin: 03/05/18 09:08 Dose: 10 mg Gabapentin (Neurontin) 600 mg PO TID [facility] Last Admin: 03/05/18 09:08 Dose: 600 mg Ibuprofen (Motrin Tab) 800 mg PO Q8 [facility] Last Admin: 03/05/18 09:05 Dose: 800 mg Morphine Sulfate (Morphine) 4 mg IVP Q4 PRN PRN Reason: Pain, severe (8-10) Last Admin: 03/03/18 02:51 Dose: 4 mg Ondansetron HCl (Zofran Inj) 4 mg IVP Q4 PRN PRN Reason: Nausea/Vomiting Pantoprazole Sodium (Protonix Ec Tab) 40 mg PO DAILY [facility] Last Admin: 03/05/18 09:08 Dose: 40 mg Results - Vital Signs Recent Vital Signs: Last Vital Signs Temp 97.7 F 03/05/18 08:16 Pulse 50 L 03/05/18 08:16 Resp 18 03/05/18 08:16 BP 163/96 H 03/05/18 08:16 Pulse Ox 98 03/05/18 08:16 - Labs Result Diagrams: 03/03/18 05:21 03/03/18 05:21
--- NOTE | 2018-03-05 12:01 | CP.PCM.PN ---
Subjective - Date & Time of Evaluation Date of Evaluation: 03/05/18 Time of Evaluation: 12:00 - Subjective Subjective: Patient has paresthesia in right hip and right leg, but the pain and stiffness have gotten better since Tuesday. She still has pain when ambulating however. She no longer requires IV Morphine for pain control. She denies side effects from the rest of the regimen. She's s/p cervical and thoracic MRI's yesterday. Objective - Vital Signs/Intake and Output Vital Signs (last 24 hours): Temp Pulse Resp BP Pulse Ox 97.7 F 50 L 18 163/96 H 98 03/05/18 08:16 03/05/18 08:16 03/05/18 08:16 03/05/18 08:16 03/05/18 08:16 - Medications Medications: Current Medications Cyclobenzaprine HCl (Flexeril) 10 mg PO TID [facility] Last Admin: 03/05/18 09:08 Dose: 10 mg Gabapentin (Neurontin) 600 mg PO TID [facility] Last Admin: 03/05/18 09:08 Dose: 600 mg Ibuprofen (Motrin Tab) 800 mg PO Q8 [facility] Last Admin: 03/05/18 09:05 Dose: 800 mg Morphine Sulfate (Morphine) 4 mg IVP Q4 PRN PRN Reason: Pain, severe (8-10) Last Admin: 03/03/18 02:51 Dose: 4 mg Ondansetron HCl (Zofran Inj) 4 mg IVP Q4 PRN PRN Reason: Nausea/Vomiting Pantoprazole Sodium (Protonix Ec Tab) 40 mg PO DAILY [facility] Last Admin: 03/05/18 09:08 Dose: 40 mg - Labs Labs: 03/03/18 05:21 03/03/18 05:21 PT 10.9 Seconds (9.8-13.1) 03/02/18 05:35 INR 1.0 (0.9-1.2) 03/02/18 05:35 APTT 26.9 Seconds (25.6-37.1) 03/02/18 05:35 - Back Exam Back Exam: paraspinal tenderness, vertebral tenderness Assessment and Plan (1) Intractable low back pain Assessment & Plan: 47 yo woman w/ lumbar radiculopathy. S/P LESI #1. - f/u neurology recommendation - outpatient f/u with neurosurgery and pain management - PT eval for dispo, home vs rehab - continue current regimen for discharge Status: Acute
[2018-03-05] MEDS ORDERED: Magnesium Hydroxide Susp 30 ml UD PO PRN (12:19)
[2018-03-05] MEDS: Lidocaine 5% Patch TD SCH (15:05)
--- NOTE | 2018-03-05 15:30 | CP.PCM.PN ---
Subjective - Date & Time of Evaluation Date of Evaluation: 03/05/18 Time of Evaluation: 15:50 - Subjective Subjective: F/U Low back pain, S/P epidural block. C/O of R L-S gluteal pain radiated to lower extremity. Objective - Vital Signs/Intake and Output Vital Signs (last 24 hours): Temp Pulse Resp BP Pulse Ox 97.7 F 50 L 18 163/96 H 98 03/05/18 08:16 03/05/18 08:16 03/05/18 08:16 03/05/18 08:16 03/05/18 08:16 - Medications Medications: Current Medications Cyclobenzaprine HCl (Flexeril) 10 mg PO TID [facility] Last Admin: 03/05/18 13:50 Dose: 10 mg Gabapentin (Neurontin) 600 mg PO TID [facility] Last Admin: 03/05/18 13:50 Dose: 600 mg Ibuprofen (Motrin Tab) 800 mg PO Q8 [facility] Last Admin: 03/05/18 09:05 Dose: 800 mg Lidocaine (Lidoderm) 1 ea TD DAILY [facility] Last Admin: 03/05/18 15:05 Dose: 1 ea Magnesium Hydroxide (Milk Of Magnesia) 30 ml PO DAILY PRN PRN Reason: Constipation Morphine Sulfate (Morphine) 4 mg IVP Q4 PRN PRN Reason: Pain, severe (8-10) Last Admin: 03/03/18 02:51 Dose: 4 mg Ondansetron HCl (Zofran Inj) 4 mg IVP Q4 PRN PRN Reason: Nausea/Vomiting Pantoprazole Sodium (Protonix Ec Tab) 40 mg PO DAILY [facility] Last Admin: 03/05/18 09:08 Dose: 40 mg - Labs Labs: 03/03/18 05:21 03/03/18 05:21 PT 10.9 Seconds (9.8-13.1) 03/02/18 05:35 INR 1.0 (0.9-1.2) 03/02/18 05:35 APTT 26.9 Seconds (25.6-37.1) 03/02/18 05:35 - Constitutional Appears: No Acute Distress - Head Exam Head Exam: NORMAL INSPECTION - Eye Exam Eye Exam: PERRL - ENT Exam ENT Exam: Normal Exam - Neck Exam Neck Exam: Normal Inspection - Respiratory Exam Respiratory Exam: NORMAL BREATHING PATTERN - Cardiovascular Exam Cardiovascular Exam: REGULAR RHYTHM - GI/Abdominal Exam GI & Abdominal Exam: Soft, Normal Bowel Sounds - Extremities Exam Extremities Exam: Normal Inspection - Back Exam Back Exam: tenderness (R L-S) - Neurological Exam Neurological Exam: Alert, CN II-XII Intact, Oriented x3 Additional comments: No focal motor deficit - Psychiatric Exam Psychiatric exam: Anxious - Skin Skin Exam: Warm Assessment and Plan (1) Intractable low back pain Status: Acute (2) Radiculopathy, lumbar region Status: Acute - Assessment and Plan (Free Text) Plan: Neurosurgeon suggested conservative Tx Continue Flexeril, L[place]od[place], Motrin and rest of Tx. Neurosurgeon consult appreciated. Continue PT
--- NOTE | 2018-03-06 08:22 | CON ---
DATE: 03/03/2018 HISTORY OF PRESENT ILLNESS: This is a 47-year-old lady that had been having approximately a year of back pain radiating down her right leg. She very well described an L5 dermatomal distribution of buttock, lateral thigh, anterior calf towards her big toe. This became early about a month ago and quite severe over the past several days, prompting an ER visit and admission. She underwent an MRI, which documented significant foraminal stenosis on the right L5-S1 consistent with her problem. Actually, she is several hours now status post an epidural steroid injection. This did give her complete relief for a couple hours, but is now wearing off, but hopefully, the steroid will kick in over the next couple of days. She admits to some dysesthesias in distribution. No weakness. She has been working this whole time, and trying to overcome it. She has been on various medicines. She had no true conservative treatment, i.e., no physiotherapy and just had this epidural now. Her past medical history, medications, allergies, etc. are reviewed in the EMR. PHYSICAL EXAMINATION: She does 5/5 strength, particularly in the right plantar flexion, dorsiflexion, and DHL. Sensation is grossly intact. Reflexes are within normal limits. Straight leg raising reproduces severe pain at approximately 35 degrees. Her gait was not tested. LABORATORY DATA: MRI documents disk bulge eccentric to the right causing rather severe right foraminal stenosis, markedly compromising the exiting L5 nerve root. IMPRESSION AND PLAN: I am in full agreement with the initiation of conservative treatment plan. At this time, she has obviously already had the epidural. She has already been ordered for physiotherapy. Hopefully, she will gain some relief from the epidural over the next couple of days, and would be able to be discharged and continued on a home physiotherapy program. I would also advocate treatment with non-steroidals over this time. If unfortunately, the epidural really does not make a difference, she may require surgical intervention, which would probably entail rather simple right unilateral microforaminotomy. All that was discussed with the patient. I will follow her up as an outpatient. Thank you for the courtesy referral. Rajeev Santizo MD
--- NOTE | 2018-03-06 09:01 | CP.PCM.PN ---
Subjective - Date & Time of Evaluation Date of Evaluation: 03/06/18 Time of Evaluation: 09:01 - Subjective Subjective: Ms. Dooley was seen and examined at the bedside. She is alert, oriented in all spheres. She claims of feeling better after her epidural treatment. She is able to majority of her ADL with the assistance of walker. The MRI of the thoracic showed T7-T8 showed disc bulge with encroachmnet upon the ventral margin the cord. MRI of the cervical showed C5-C6 broad based dics herniation with impingement upon the ventral margin in the cord. 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 There was no untoward events overnight. Objective - Vital Signs/Intake and Output Vital Signs (last 24 hours): Temp Pulse Resp BP Pulse Ox 97.6 F 63 19 164/106 H 99 03/06/18 07:53 03/06/18 07:53 03/06/18 07:53 03/06/18 07:53 03/06/18 07:53 - Medications Medications: Current Medications Cyclobenzaprine HCl (Flexeril) 10 mg PO TID [facility] Last Admin: 03/05/18 18:06 Dose: 10 mg Gabapentin (Neurontin) 600 mg PO TID [facility] Last Admin: 03/05/18 18:07 Dose: 600 mg Ibuprofen (Motrin Tab) 800 mg PO Q8 [facility] Last Admin: 03/06/18 00:23 Dose: 800 mg Lidocaine (Lidoderm) 1 ea TD DAILY [facility] Last Admin: 03/05/18 15:05 Dose: 1 ea Magnesium Hydroxide (Milk Of Magnesia) 30 ml PO DAILY PRN PRN Reason: Constipation Morphine Sulfate (Morphine) 4 mg IVP Q4 PRN PRN Reason: Pain, severe (8-10) Last Admin: 03/03/18 02:51 Dose: 4 mg Ondansetron HCl (Zofran Inj) 4 mg IVP Q4 PRN PRN Reason: Nausea/Vomiting Pantoprazole Sodium (Protonix Ec Tab) 40 mg PO DAILY [facility] Last Admin: 03/05/18 09:08 Dose: 40 mg - Labs Labs: 03/03/18 05:21 03/03/18 05:21 PT 10.9 Seconds (9.8-13.1) 03/02/18 05:35 INR 1.0 (0.9-1.2) 03/02/18 05:35 APTT 26.9 Seconds (25.6-37.1) 03/02/18 05:35 - Constitutional Appears: No Acute Distress - Head Exam Head Exam: NORMAL INSPECTION - Eye Exam Pupil Exam: PERRL - Neurological Exam Neurological Exam: Alert, Awake, Oriented x3 Neuro motor strength exam: Left Upper Extremity: 5, Right Upper Extremity: 5, Left Lower Extremity: 3, Right Lower Extremity: 3 Additional comments: alert, oriented with weak lower extremities. Assessment and Plan (1) Intractable low back pain Assessment & Plan: Case discussed with Dr. Arias, continue all current medical, physical, and occupational therapies. Recommend to follow any orders from neurosurgery, pain management. Neurology is signing off from this case since this is a neurosurgery and pain management case. Please re-consult as needed. Status: Acute
[2018-03-06] MEDS: Lidocaine 5% Patch TD SCH (09:11)
[2018-03-06] MEDS: Pantoprazole 40 mg EC Tab PO SCH (09:14)
--- NOTE | 2018-03-06 15:40 | RAD ---
PROCEDURE: Fluoroscopy up to 1 hr. HISTORY: PAIN MANAGEMENT COMPARISON: None TECHNIQUE: Standard protocol for this study/examination. FINDINGS: Total fluoroscopic time (continuous mode) utilized during the procedure (seconds) 18.9. Total exam DLP: (mGy) 4.56 IMPRESSION: Less than 1 hr fluoroscopic time utilized during performance of the procedure.
[2018-03-06 15:51] VITALS: O2SAT 98
--- NOTE | 2018-03-06 20:13 | CP.PCM.PN ---
Subjective - Date & Time of Evaluation Date of Evaluation: 03/06/18 Time of Evaluation: 12:50 - Subjective Subjective: F/U Low back pain, s/p Epidural block Pt doing better with PT, able to ambulate walk 40 ft when stat having pain in lower back radiated to R lower extremity. Objective - Vital Signs/Intake and Output Vital Signs (last 24 hours): Temp Pulse Resp BP Pulse Ox 97.9 F 72 20 151/98 H 98 03/06/18 15:51 03/06/18 15:51 03/06/18 15:51 03/06/18 15:51 03/06/18 15:51 - Medications Medications: Current Medications Cyclobenzaprine HCl (Flexeril) 10 mg PO TID [facility] Last Admin: 03/06/18 18:09 Dose: 10 mg Gabapentin (Neurontin) 600 mg PO TID [facility] Last Admin: 03/06/18 18:10 Dose: 600 mg Ibuprofen (Motrin Tab) 800 mg PO Q8 [facility] Last Admin: 03/06/18 18:10 Dose: 800 mg Lidocaine (Lidoderm) 1 ea TD DAILY [facility] Last Admin: 03/06/18 09:11 Dose: 1 ea Magnesium Hydroxide (Milk Of Magnesia) 30 ml PO DAILY PRN PRN Reason: Constipation Ondansetron HCl (Zofran Inj) 4 mg IVP Q4 PRN PRN Reason: Nausea/Vomiting Pantoprazole Sodium (Protonix Ec Tab) 40 mg PO DAILY [facility] Last Admin: 03/06/18 09:14 Dose: 40 mg - Labs Labs: 03/03/18 05:21 03/03/18 05:21 PT 10.9 Seconds (9.8-13.1) 03/02/18 05:35 INR 1.0 (0.9-1.2) 03/02/18 05:35 APTT 26.9 Seconds (25.6-37.1) 03/02/18 05:35 - Constitutional Appears: No Acute Distress - Head Exam Head Exam: NORMAL INSPECTION - Eye Exam Eye Exam: PERRL - ENT Exam ENT Exam: Normal Exam - Neck Exam Neck Exam: Normal Inspection - Respiratory Exam Respiratory Exam: NORMAL BREATHING PATTERN - Cardiovascular Exam Cardiovascular Exam: REGULAR RHYTHM - GI/Abdominal Exam GI & Abdominal Exam: Soft, Normal Bowel Sounds - Extremities Exam Extremities Exam: Normal Inspection - Back Exam Back Exam: tenderness (R L-S) - Neurological Exam Neurological Exam: Alert, CN II-XII Intact, Oriented x3 Additional comments: No focal motor deficit - Psychiatric Exam Psychiatric exam: Anxious - Skin Skin Exam: Warm Assessment and Plan (1) Intractable low back pain Status: Acute (2) Radiculopathy, lumbar region Status: Acute - Assessment and Plan (Free Text) Plan: Continue PT, continue Lidodern, Flexeril, Motrin and rest of tx.
[2018-03-07 00:12] VITALS: BP 139/81
[2018-03-07 00:14] VITALS: RESP 18
[2018-03-07 09:01] VITALS: PULSE 67; TEMP 97.4
[2018-03-07] MEDS: Lidocaine 5% Patch TD SCH (09:34)
[2018-03-07] MEDS: Pantoprazole 40 mg EC Tab PO SCH (09:36)
--- NOTE | 2018-03-07 14:22 | CP.PCM.DIS ---
Provider - Provider Date of Admission: 03/03/18 12:13 Attending physician: Rivera Hall MD Diagnosis - Discharge Diagnosis (1) Intractable low back pain Status: Acute Priority: High (2) Radiculopathy, lumbar region Status: Acute Priority: High Hospital Course - Lab Results Lab Results: Most Recent Lab Values WBC 8.1 K/uL (4.8-10.8) 03/03/18 05:21 RBC 4.06 Mil/uL (3.80-5.20) 03/03/18 05:21 Hgb 13.0 g/dL (12.0-16.0) 03/03/18 05:21 Hct 38.9 % (34.0-47.0) 03/03/18 05:21 MCV 95.8 fl (81.0-99.0) 03/03/18 05:21 MCH 31.9 pg (27.0-31.0) H 03/03/18 05:21 MCHC 33.3 g/dL (33.0-37.0) 03/03/18 05:21 RDW 13.5 % (11.5-14.5) 03/03/18 05:21 Plt Count 280 K/uL (130-400) 03/03/18 05:21 MPV 8.9 fl (7.2-11.7) 03/01/18 21:36 Neut % (Auto) 53.5 % (50.0-75.0) 03/01/18 21:36 Lymph % (Auto) 34.5 % (20.0-40.0) 03/01/18 21:36 [place] % (Auto) 9.0 % (0.0-10.0) 03/01/18 21:36 Eos % (Auto) 1.9 % (0.0-4.0) 03/01/18 21:36 Baso % (Auto) 1.1 % (0.0-2.0) 03/01/18 21:36 Neut # (Auto) 7.0 K/uL (1.8-7.0) 03/01/18 21:36 Lymph # (Auto) 4.5 K/uL (1.0-4.3) H 03/01/18 21:36 [place] # (Auto) 1.2 K/uL (0.0-0.8) H 03/01/18 21:36 Eos # (Auto) 0.2 K/uL (0.0-0.7) 03/01/18 21:36 Baso # (Auto) 0.1 K/uL (0.0-0.2) 03/01/18 21:36 PT 10.9 Seconds (9.8-13.1) 03/02/18 05:35 INR 1.0 (0.9-1.2) 03/02/18 05:35 APTT 26.9 Seconds (25.6-37.1) 03/02/18 05:35 Sodium 137 mmol/l (132-148) 03/03/18 05:21 Potassium 4.1 MMOL/L (3.6-5.0) 03/03/18 05:21 Chloride 102 mmol/L (98-107) 03/03/18 05:21 Carbon Dioxide 26 mmol/L (22-30) 03/03/18 05:21 Anion Gap 13 (10-20) 03/03/18 05:21 BUN 13 mg/dl (7-17) 03/03/18 05:21 Creatinine 0.8 mg/dl (0.7-1.2) 03/03/18 05:21 Est GFR ( Amer) > 60 03/03/18 05:21 Est GFR (Non-Af Amer) > 60 03/03/18 05:21 Random Glucose 111 mg/dL (65-105) H 03/03/18 05:21 Calcium 9.1 mg/dL (8.4-10.2) 03/03/18 05:21 Total Bilirubin 0.7 mg/dl (0.2-1.3) 03/02/18 05:35 AST 18 U/L (14-36) 03/02/18 05:35 ALT 23 U/L (9-52) 03/02/18 05:35 Alkaline Phosphatase 36 U/L (38-126) L 03/02/18 05:35 Total Protein 7.3 G/DL (6.3-8.2) 03/02/18 05:35 Albumin 4.0 g/dL (3.5-5.0) 03/02/18 05:35 Globulin 3.3 gm/dL (2.2-3.9) 03/02/18 05:35 Albumin/Globulin Ratio 1.2 (1.0-2.1) 03/02/18 05:35 Triglycerides 63 mg/DL (0-149) 03/02/18 05:35 Cholesterol 229 mg/dL (0-199) H 03/02/18 05:35 LDL Cholesterol Direct 140 mg/dL (0-129) H 03/02/18 05:35 HDL Cholesterol 56 MG/DL (30-70) 03/02/18 05:35 Thyroxine (T4) 7.53 ug/dl (5.5-11.0) 03/02/18 06:27 Total T3 0.893 nmol/L (1.49-2.60) L 03/02/18 05:35 TSH 3rd Generation 0.85 mIU/ML (0.46-4.68) 03/02/18 05:35 Urine Color Yellow (YELLOW) 03/03/18 06:20 Urine Clarity Cloudy (Clear) 03/03/18 06:20 Urine pH 6.0 (5.0-8.0) 03/03/18 06:20 Ur Specific [place] 1.025 (1.003-1.030) 03/03/18 06:20 Urine Protein 30 mg/dL (NEGATIVE) 03/03/18 06:20 Urine Glucose (UA) Neg mg/dL (Normal) 03/03/18 06:20 Urine Ketones 20 mg/dL (NEGATIVE) 03/03/18 06:20 Urine Blood Negative (NEGATIVE) 03/03/18 06:20 Urine Nitrate Negative (NEGATIVE) 03/03/18 06:20 Urine Bilirubin Negative (NEGATIVE) 03/03/18 06:20 Urine Urobilinogen 0.2-1.0 mg/dL (0.2-1.0) 03/03/18 06:20 Ur Leukocyte Esterase Mod [place]/uL (Negative) 03/03/18 06:20 Urine RBC (Auto) 10 /hpf (0-3) H 03/03/18 06:20 Urine Microscopic WBC 9 /hpf (0-5) H 03/03/18 06:20 Ur Squamous Epith Cells 40 /hpf (0-5) H 03/03/18 06:20 Urine Bacteria Occ (<OCC) H 03/03/18 06:20 Discharge Exam - Head Exam Head Exam: NORMAL INSPECTION Discharge Plan - Follow Up Plan Condition: FAIR Disposition: REHAB FACILITY/REHAB UNIT Instructions: Low Back Pain (DC), Nerve Blocks Additional Instructions: follow up with primary MD 1 week Referrals: Philipp Arias MD [Medical Doctor] - Boubacar Bermudez-Matt Mobley MD [Staff Provider] - Rajeev Santizo MD [Staff Provider] -
== END 2018-03-07 16:01 | DRG 552 ==
LOC: H.ER 16:12 → H.ERHOLD 22:16 → H.MEDSURG1 23:38 → OBSVTOIN 03-03 12:13
PROVIDERS: ADMIT Internal Medicine Pulmonary Disease; ATTEND Internal Medicine Pulmonary Disease
PROC: 3E0R3BZ Introduction of Anesthetic Agent into Spinal Canal, Percutaneous Approach (ICD-10-PCS; 2018-03-03)
PROC: 3E0R33Z Introduction of Anti-inflammatory into Spinal Canal, Percutaneous Approach (ICD-10-PCS; principal; 2018-03-03 08:30)
DX: M51.16 Intervertebral disc disorders with radiculopathy, lumbar region (principal); M48.07 Spinal stenosis, lumbosacral region; M50.223 Other cervical disc displacement at C6-C7 level; Z87.891 Personal history of nicotine dependence